=== PATIENT | male | born 1975 | race Caucasian/White ===

== ENCOUNTER 2020-04-08 16:38 | Inpatient (IN) | payer OTHER, SELFPAY ==
[2020-04-08] VITALS (8 sets, daily range): BP systolic 119–135; BP diastolic 70–89; PULSE 70–83; RESP 14–16; TEMP 36.3–36.8; O2SAT 95–98; BMI 27.2
--- NOTE | 2020-04-08 16:52 | CT_ITS ---
STUDY: CT ABDOMEN AND PELVIS WITHOUT CONTRAST REASON FOR EXAM: Male, 44 years old. RIGHT FLANK PAIN. JUST HAD LITHOTRIPSY AND URETERAL STENT REMOVED 3 DAYS AGO RADIATION DOSAGE (If Supplied By Facility): CTDIvol = ( 11.21 ) mGy, DLP = ( 558.05 ) mGycm TECHNIQUE: Transaxial images were obtained from the dome of the diaphragm to the symphysis pubis without oral contrast, and without intravenous contrast. Sagittal and coronal images were reconstructed. Individualized dose optimization techniques were used for this CT. COMPARISON: None. FINDINGS: The visualized lung bases are unremarkable. The visualized portions of the heart are within normal limits. Normal liver. Normal gallbladder and extrahepatic biliary system. Normal spleen. Normal pancreas. Normal bilateral adrenal glands. 2 tiny nonobstructing calculi in the right kidney. There is moderate right hydroureteronephrosis secondary to large calculus in the mid pelvic ureter measuring approximately 6 to 7 mm in size. Left kidney is atrophic and demonstrates multilobulated appearance possibly related to chronic scarring and demonstrates 2 nonobstructing calculi with mild pelvocaliectasis but no obstructing stone. Normal visualized stomach. Normal small intestine. Normal colon. The appendix is visualized and appears normal. Normal abdominal aorta. Normal inferior vena cava. Normal retroperitoneum. Incompletely distended thick-walled bladder likely of no significance There is trace of fluid within the pouch of ELVA. Mild prominence of the prostate and seminal vesicles uncertain significance possibly due to prostatitis however clinical correlation is recommended Small fat-containing left inguinal hernia Lumbar spine demonstrates degenerative change CT/Abdomen/Pelvis without Cont IMPRESSION: Nonobstructing right renal calculi and moderate hydroureteronephrosis secondary to large calculus in the mid pelvic ureter measuring approximately 6 to 7 mm in size Atrophic lobulated left kidney with tiny nonobstructing calculi Electronically Signed: Magdi Fajardo MD at 17:49 EST , Service support ,
--- NOTE | 2020-04-08 16:52 | ED.DCSUM_ITS ---
History of Present Illness Chief Complaint: Flank Pain Informant: Patient Narrative: 44-year-old male presents to the emergency room with right flank pain. Patient states that 2 weeks ago he was diagnosed with a kidney stone and ended up having surgery at [facility] in [place]. He followed up on Monday and had his ureteral stent removed. He states he is on his way home from that appointment and the same pain that he had experienced with his kidney stone returned. He states it has come and gone today was particularly bad around noon. States that he was advised to come back to the hospital and his neighbor had come here before and suggested that he come to [facility]. He notes nausea and vomiting. He has had prior appendectomy. He denies any dysuria. Past Medical History - Allergies and Home Meds Allergies/Adverse Reactions: Allergies No Known Allergies Allergy (Verified 04/08/20 16:43) Primary Care Physician: Skyler Gonzalez MD [Primary Care Provider] - Past Medical History: - - Ureterolithiasis Surgical History: appendectomy, - - Ureteral stent placement Lives: With Family Drugs: None Review of Systems General: Denies: Chills, Fever, Sweats Eyes: Denies: Visual changes - bilaterally, Diplopia ENT: Denies: Rhinorrhea, Sore throat Cardiovascular: Denies: Chest pain, Palpitations Respiratory: Denies: Dyspnea, Cough, Dyspnea on exertion Gastrointestinal: Reports: Abdominal pain, Nausea, Vomiting. Denies: Diarrhea, Melena, Hematochezia Genitourinary: Reports: - - Right flank pain. Denies: Dysuria, Hematuria, Frequency Musculoskeletal: Denies: Back pain, Extremity Pain Skin: Denies: Rash, Wounds Neurological: Denies: Headache, Weakness, Numbness Physical Exam Vital Signs/Narrative: Vital Signs Temp Pulse Resp BP Pulse Ox 04/08/20 16:39 98.3 F 83 16 126/79 H 96 04/08/20 16:38 98.3 F 70 16 126/79 H 96 Inital Vital Signs reviewed: Yes General: Well nourished, Well developed, No Acute Distress Head: Normocephalic, Atraumatic Eyes: Perrl, EOMI ENT: Moist mucous membranes, No rhinorrhea Neck: Supple, Nontender Cardiovascular: Regular rate, Regular rhythm, No murmurs Respiratory: No distress, CTA bilaterally, Chest nontender Abdomen: Soft, Nontender, Nondistended, Normal bowel sounds Back: Nontender, Normal Inspection Extremities: Nontender, No edema Skin: Normal color, No rash Neurological: Alert, Oriented x3, Cranial nerves II-XII grossly intact, Normal Strength, Normal Sensation Psychological: Normal affect, Normal Mood Diagnostic/Tx/Re-eval Laboratory Last Values WBC 11.7 K/mm3 (4.4-11.0) H 04/08/20 17:07 RBC 5.09 M/mm3 (4.6-6.2) 04/08/20 17:07 Hgb 16.1 g/dL (13.0-16.5) 04/08/20 17:07 Hct 45.4 % (40-54) 04/08/20 17:07 MCV 89.2 fL (80-94) 04/08/20 17:07 MCH 31.6 pg (27.0-32.0) 04/08/20 17:07 MCHC 35.5 g/dL (32-36) 04/08/20 17:07 RDW Std Deviation 38.4 fl (35.1-43.9) 04/08/20 17:07 RDW Coeff of [place] 11.7 % (11.6-14.6) 04/08/20 17:07 Plt Count 193 K/mm3 (150-450) 04/08/20 17:07 MPV 10.2 fl (6.2-12.0) 04/08/20 17:07 Immature Gran % (Auto) 0.400 % (0.0-0.9) 04/08/20 17:07 Neut % (Auto) 83.3 % (47-70) H 04/08/20 17:07 Lymph % (Auto) 7.4 % (19-41) L 04/08/20 17:07 [place] % (Auto) 8.3 % (0-10) 04/08/20 17:07 Eos % (Auto) 0.3 % (0-5) 04/08/20 17:07 Baso % (Auto) 0.3 % (0-1) 04/08/20 17:07 Absolute Neuts (auto) 9.8 X10^3/uL (2.0-7.7) H 04/08/20 17:07 Absolute Lymphs (auto) 0.87 X10^3/uL (0.83-4.51) 04/08/20 17:07 Nucleated RBC % 0 % (0-5) 04/08/20 17:07 Sodium 135 mmol/L (136-145) L 04/08/20 17:07 Potassium 3.8 mmol/L (3.5-5.1) 04/08/20 17:07 Chloride 98 mmol/L (98-107) 04/08/20 17:07 Carbon Dioxide 29.0 mmol/L (21.0-32.0) 04/08/20 17:07 Anion Gap 8 (5-15) 04/08/20 17:07 BUN 34 mg/dL (7-18) H 04/08/20 17:07 Creatinine 6.28 mg/dL (0.70-1.30) H 04/08/20 17:07 Estim Creat Clear Calc 15.32 ml/min 04/08/20 17:07 Est GFR (MDRD) Af Amer 13 mL/min (>60) L 04/08/20 17:07 Est GFR (MDRD) Non-Af 10 mL/min (>60) L 04/08/20 17:07 BUN/Creatinine Ratio 5.4 RATIO (10-20) L 04/08/20 17:07 Glucose 100 mg/dL (74-106) 04/08/20 17:07 Calcium 9.7 mg/dL (8.5-10.1) 04/08/20 17:07 Urine Color Yellow (Yellow) 04/08/20 17:00 Urine Clarity Clear (Clear) 04/08/20 17:00 Urine pH 6.5 (5.0 - 8.0) 04/08/20 17:00 Ur Specific [place] 1.010 (1.002-1.030) 04/08/20 17:00 Urine Protein Negative mg/dl (Negative) 04/08/20 17:00 Urine Glucose (UA) Normal mg/dl (Normal) 04/08/20 17:00 Urine Ketones Negative mg/dl (Negative) 04/08/20 17:00 Urine Occult Blood Negative /ul (Negative) 04/08/20 17:00 Urine Nitrite Negative (Negative) 04/08/20 17:00 Urine Bilirubin Negative mg/dL (Negative) 04/08/20 17:00 Urine Urobilinogen Normal mg/dl (Normal) 04/08/20 17:00 Ur Leukocyte Esterase 100 /ul (Negative) H 04/08/20 17:00 Urine RBC 0 SEEN /hpf (0-5) 04/08/20 17:00 Urine WBC 0-5 SEEN /hpf (0-5) 04/08/20 17:00 Ur Squamous Epith Cells 0 SEEN /hpf (0-5) 04/08/20 17:00 Urine Bacteria 0 SEEN /hpf (None Seen) 04/08/20 17:00 Urine Mucus 0 SEEN /hpf (<or=2+) 04/08/20 17:00 Clinical Impression(s) from Imaging Studies Abdomen/Pelvis CT 04/08/20 16:52 IMPRESSION: Nonobstructing right renal calculi and moderate hydroureteronephrosis secondary to large calculus in the mid pelvic ureter measuring approximately 6 to 7 mm in size Atrophic lobulated left kidney with tiny nonobstructing calculi Electronically Signed: Magdi Fajardo MD at 17:49 EST , Service support , - Medical Decision Making Patient with a large distal ureteral stone and severe hydronephrosis on stone protocol CT. Creatinine significantly elevated greater than 6. Patient wishes to stay at [facility] for his care. I spoke with our urologist money market clerk Dr. Cartwright. He is come to the emergency department to see the patient and will admit and take him to surgery tonight. ED Disposition - Plan for ED Patient: Diagnosis: Right ureteral calculus, Acute renal failure Referrals: Skyler Gonzalez MD [Primary Care Provider] -
[2020-04-08] MEDS: Ondansetron 4 MG/2 ML Vial IV (17:10)
[2020-04-08] MEDS: Ketorolac 15 MG/ML Vial IV (17:10)
[2020-04-08 17:11] LABS: Bacteria 0 SEEN /hpf (None Seen); Mucous, Urine 0 SEEN /hpf (<or=2+); Red Blood Cells-Urine 0 SEEN /hpf (0-5); Squamous Epithelial Cells - UA 0 SEEN /hpf (0-5)
[2020-04-08 17:19] LABS: Absolute Lymphocyte Count 0.87 X10^3/uL (0.83-4.51); Absolute Neutrophil Count 9.8 X10^3/uL (2.0-7.7); Basophil# 0.03 X10^3/uL; Basophil% 0.3 % (0-1); Eosinophil# 0.03 X10^3/uL; Eosinophils% 0.3 % (0-5); Hematocrit 45.4 % (40-54); Hemoglobin 16.1 g/dL (13.0-16.5); Lymphocyte # 0.87 X10^3/ul (4.0); Lymphocyte % 7.4 % (19-41); Mean Corp Hgb Conc 35.5 g/dL (32-36); Mean Corpuscular Hgb 31.6 pg (27.0-32.0); Mean Corpuscular Volume 89.2 fL (80-94); Mean Platelet Vol. 10.2 fl (6.2-12.0); Monocyte# 0.97 X10^3/uL; Monocyte% 8.3 % (0-10); NRBC Flagged by Analyzer 0 % (0-5); Neutrophil # 9.79 X10^3/uL (2.7-7.7); Neutrophil % 83.3 % (47-70); Platelet Count 193 K/mm3 (150-450); RBC Distribution Width CV 11.7 % (11.6-14.6); RBC Distribution Width SD 38.4 fl (35.1-43.9); Red Blood Count 5.09 M/mm3 (4.6-6.2); White Blood Count 11.7 K/mm3 (4.4-11.0)
[2020-04-08 17:23] LABS: Color, Urine Yellow (Yellow); Glucose, Dipstick Normal (Normal); Ketone-Dipstick Negative (Negative); Leukocyte Esterase-Dipstick 100 /ul (Negative); Nitrite-Dipstick Negative (Negative); Occult Blood-Urine Negative /ul (Negative); Protein-Dipstick Negative (Negative); Urine Bilirubin Dipstick Negative (Negative); Urine Clarity Clear (Clear); Urine Urobilinogen Normal (Normal); Urine pH 6.5 (5.0 - 8.0)
[2020-04-08 17:27] LABS: Anion Gap 8 (5-15); BUN 34 mg/dL (7-18); BUN/Creat Ratio 5.4 RATIO (10-20); Calcium,Total 9.7 mg/dL (8.5-10.1); Chloride 98 mmol/L (98-107); Creatinine, Serum 6.28 mg/dL (0.70-1.30); EST Glomerular Filtration Rate 10 mL/min (>60); Est Glom Filt Rate - Afr Amer 13 mL/min (>60); Estimated Creatinine Clearance 15.32 ml/min; Glucose 100 mg/dL (74-106); Potassium 3.8 mmol/L (3.5-5.1); Sodium Level 135 mmol/L (136-145)
[2020-04-08 17:31] LABS: White Blood Cells 0-5 SEEN /hpf (0-5)
--- NOTE | 2020-04-08 19:10 | PCM.HP.BLA ---
Problem List (1) Acute renal failure Status: Acute Qualifiers: Acute renal failure type: unspecified Qualified Code(s): N17.9 - Acute kidney failure, unspecified (2) Right ureteral calculus Status: Acute History and Physical Date of Admission: 04/08/20 Chief complaint is right flank pain. History of present illness, 44-year-old male has a solitary right kidney he underwent procedure done in [place] for an obstructing stone he had a stent removed just today by another urologist and he presented to the emergency room with severe pain and he has an obstructing stone in the distal right ureter and he has a very high creatinine. I do not know his baseline creatinine. He essentially has a solitary right kidney since his left kidney was operated on at this point is a very small remnant with poor function. Otherwise is a very healthy male who does not take any chronic medical problems. Past medical history, solitary right kidney Past surgical history, surgery in his left kidney some sort of exploratory surgery when he was little he does remember details, had as appendix removed, and he also had recent kidney stone surgery on the right side down in [place]. Allergies, no known drug allergies. Medications no chronic medications but currently taking Flomax for his kidney stone. Past medical problems no family medical problems that are relevant. Review of systems is positive for right flank pain and elevated creatinine and lab work. CAT scan reviewed and obstructing obstructing stone in the distal right ureter with right hydronephrosis Labs reviewed he has acute kidney insufficiency probably on some chronic kidney insufficiency as well as because a solitary right kidney On physical exam he is alert oriented x3 pleasant appearing 44-year-old male in no acute distress currently Abdomen soft and benign, Lungs are clear heart regular Genitourinary exam deferred extremities are normal Assessment and plan this is a 44-year-old male with solitary right kidney presents with obstruction in the distal right ureter severe hydronephrosis worsening kidney function because of the obstruction but baseline functions not clear. He has not had anything to eat or drink and he is also had some nausea vomiting today is due to the obstruction. I offered the patient intervention with ureteroscopy and laser surgery and patient tonight for a right ureteroscopy laser of the stone fragment in the distal ureter and also stent placement on the right side I expect his creatinine to resolve once we decompress his kidney but he understands is possible that he may have chronic renal insufficiency or injury from this. He want to spend the night and will check blood count in the morning and BMP in the morning to make sure his creatinine resolves. If he is clinically stable with resolving creatinine possible to let him go home tomorrow but I would like to see what his creatinine is after decompression. He understands the risk of the procedure is bleeding infection or rare risk of injury or damage to the ureter bladder understands also possible it may displace the stent if I am not able to reach his stone at this point just to relieve the obstruction. He is n.p.o. he signed the consent form and the team's been called.
--- NOTE | 2020-04-08 20:56 | DCINST_ITS ---
Discharge Diet: Light diet - advance as tolerated Discharge Activity: Return to Normal Activity Call your doctor if your incision/area has: Sudden Increased Bleeding Suture Line Care: Avoid Pulling/Pushing, Avoid Pinching/Bending Allergies/Adverse Reactions: Allergies No Known Allergies Allergy (Verified 04/08/20 16:43) Medications to take at Discharge Tamsulosin HCl [Flomax] 0.4 mg PO DAILY 04/08/20 Primary Care Physician: Skyler Gonzalez MD [Primary Care Provider] - Test Results: Test results from this visit will be discussed in further detail at your follow- up appointment, if applicable. Please Follow Up With: Jesus Cartwright MD - [phone] When: please call to make an appointment.
--- NOTE | 2020-04-08 21:02 | OP.PCM_ITS ---
Problem List (1) Acute renal failure Status: Acute Qualifiers: Acute renal failure type: unspecified Qualified Code(s): N17.9 - Acute kidney failure, unspecified (2) Right ureteral calculus Status: Acute Report of Operation Date of Procedure: 04/08/20 Pre-Operative Diagnosis: Obstructing stones status post stent removal outside hospital Post-Operative Diagnosis: Same Surgery/Procedure Performed:: Cystoscopy right ureteroscopy laser lithotripsy of stones and right stent placement. Description of Surgical Findings:: This is a patient who presents to the hospital for treatment for an obstructing right distal ureter calculi, he had a stent removed in [place] on Monday. He presented to the emergency room with severe flank pain and desired to have intervention instead of transferred back.. I discussed with the patient how the surgery would be performed and we reviewed the risks and benefits of the surgery. The risk and benefits include the risk of failure to remove the stone completely and that the patient may need multiple procedures. We discussed the risk of an infection, the risk of bleeding. We discussed the very rare risk of serious complicated injury to the ureter. The patient understands that if the stone is not able to be removed safely that we may abort the procedure and place a stent. After full discussion and all questions address with the patient the consent form was signed the side was marked appropriately and the patient was taken back to the operating room for the procedure. The patient was taken back to the operating room. After induction of anesthesia by the anesthesiology team the patient was placed in dorsolithotomy position. The genitals were prepped and draped in usual sterile fashion. I went into the bladder with a 21 [place] rigid cystourethroscope through the urethra. Upon entering the bladder I inspected the trigone the left and right ureteral orifice and the bladder itself. I then cannulated the right ureteral orifice and advanced a 0.038 Glidewire up into the kidney. Then over the Glidewire I advanced a 5 Fr Ureteral catheter and performed a retrograde pyelogram with about 10cc of contrast, to delineate the anatomy and identify the stone location. Backloaded off the 0.038 glidewire then the safety wire was left in place. I then placed a second 0.038 Guidewire as a working wire and over the working 0.038 guidewire I went in with the amina rigide 7.5fr ureteroscope. I was able to go inside with the 7.5Fr amina rigid utereroscope and I pulled out the working guidewire and then through the 7.5 fr simirigid ureteroscope I engage the stones and multiple fragments in the distal ureter with laser lithotripsy using a 270miron laser fiber with energy setting of 6 Hertz and 0.6 J until the stone was lasered into tiny little pieces that should pass on their own. A retrograde pyelogram was performed with 10cc of contrast and no extravasation of contrast or perforation was identified in the ureter there was some mild irritation of the ureter where the stone was located. I then backed out of the ureter left the wire in place and then over the 0.038 guidewire I placed a double coiled pigtail ureteral stent. The ureteral stent was advanced over the 0.038 guidewire under direct fluoroscopic guidance and direct cystoscopic visual guidance, once the stent was in good position I pulled the wire and the stent coiled in the kidney and bladder in good position. I then drained the patient's bladder and the cystoscope was removed and the patient was taken back to the recovery room in good position. The patient was given discharge instructions to call the office for instructions on when to come to the office to have the stent removed. Type of Anesthesia:: General Drains: stent right with string - Admit VTE Documentation VTE Present on Admission: No VTE Mechan Device Prophylaxis: SCD's
[2020-04-08] MEDS: 0.9% Normal Saline 1,000 ML 150 ML IV ×2 (21:15→23:39)
[2020-04-08] MEDS: Famotidine 20 MG Tablet PO (22:23)
[2020-04-09 01:34] VITALS: BP 122/82; PULSE 78; RESP 16; TEMP 36.8; O2SAT 95
[2020-04-09 05:30] VITALS: BP 119/76; PULSE 75; RESP 18; TEMP 36.6; O2SAT 93
[2020-04-09] MEDS: Cefazolin 1 GM/50 ML BAG IV (05:32)
[2020-04-09] MEDS: 0.9% Normal Saline 1,000 ML 150 ML IV (06:25)
[2020-04-09 07:03] LABS: Absolute Lymphocyte Count 0.99 X10^3/uL (0.83-4.51); Absolute Neutrophil Count 5.4 X10^3/uL (2.0-7.7); Basophil# 0.03 X10^3/uL; Basophil% 0.4 % (0-1); Eosinophil# 0.08 X10^3/uL; Eosinophils% 1.1 % (0-5); Hematocrit 41.5 % (40-54); Hemoglobin 14.2 g/dL (13.0-16.5); Lymphocyte # 0.99 X10^3/ul (4.0); Mean Corp Hgb Conc 34.2 g/dL (32-36); Mean Corpuscular Hgb 30.5 pg (27.0-32.0); Mean Corpuscular Volume 89.2 fL (80-94); Mean Platelet Vol. 10.2 fl (6.2-12.0); Monocyte# 0.55 X10^3/uL; Monocyte% 7.8 % (0-10); NRBC Flagged by Analyzer 0 % (0-5); Neutrophil % 76.3 % (47-70); Platelet Count 170 K/mm3 (150-450); RBC Distribution Width CV 11.9 % (11.6-14.6); RBC Distribution Width SD 38.2 fl (35.1-43.9); Red Blood Count 4.65 M/mm3 (4.6-6.2); White Blood Count 7.1 K/mm3 (4.4-11.0)
[2020-04-09 07:30] LABS: Anion Gap 6 (5-15); BUN 31 mg/dL (7-18); BUN/Creat Ratio 8.1 RATIO (10-20); Calcium,Total 8.3 mg/dL (8.5-10.1); Chloride 105 mmol/L (98-107); Creatinine, Serum 3.84 mg/dL (0.70-1.30); EST Glomerular Filtration Rate 18 mL/min (>60); Est Glom Filt Rate - Afr Amer 22 mL/min (>60); Estimated Creatinine Clearance 25.06 ml/min; Glucose 136 mg/dL (74-106); Potassium 3.2 mmol/L (3.5-5.1); Sodium Level 138 mmol/L (136-145)
--- NOTE | 2020-04-09 07:37 | DS.PCM_ITS ---
Discharge Date and Diagnosis - Problem List Patient Problems: Active and Suspected Problems Right ureteral calculus (Acute) Acute renal failure (Acute) Date of Admission: 04/08/20 Date of Discharge: 04/09/20 - Primary Discharge Diagnosis Acute Problems: Active Problems Right ureteral calculus (Acute) Acute renal failure (Acute) Hospital Course and Treatment Operations: - - Ureteroscopy and laser stones in the right ureter and right stent placement Procedures: None Summary of Care Provided: The patient is a 44 year old male who had a stone in the right solitary kidney with very large stone was lasered up and Jhony stent was removed on Monday he then presented to the emergency room here severe renal colic CAT scan was a done demonstrate obstructing stone in the distal right ureter so he was taken to surgery we lasered out the obstructing stone place a new stent. On admission his creatinine was 6 and now his creatinine is down to 3.2 recovering rapidly. He will be discharged home some antibiotics pain medicine and he can follow-up in a week next week to remove the stent in my office. Patient Problems: Active and Suspected Problems Right ureteral calculus (Acute) Acute renal failure (Acute) - Physical Exam Vitals/I&O's: Vital Signs Temp Pulse Resp BP Pulse Ox 97.9 F 75 18 119/76 93 04/09/20 05:30 04/09/20 05:30 04/09/20 05:30 04/09/20 05:30 04/09/20 05:30 Oxygen Delivery Method Room Air Weight: 83.6 kg Body Mass Index (BMI) 27.2 Intake and Output for Last 24 Hours 04/07/20 04/08/20 04/09/20 23:59 23:59 23:59 Intake Total 360 / 560 1690.0 / 1690.0 Output Total 1425 / 1425 Balance 360 / 560 265.0 / 265.0 General: Alert, Oriented x3, Cooperative HEENT: Atraumatic, PERRLA, EOMI, Normocephalic Neck: Supple, No JVD, Negative Carotid Bruits Lungs: Clear to auscultation, Normal air movement Cardiovascular: Regular rate, No murmurs Abdomen: Bowel Sounds Present, Soft, Non Tender Extremities: No edema, Capillary Refill Less than 3 Seconds Skin: No rashes, No breakdown Musculoskeletal: No Tenderness to Palpation of Joints or Extremities Neurological: Cranial nerves II-XII grossly intact Psych/Mental Status: Normal Affect, Appropriate Microbiology Past 72 Hours 04/08/20 19:35 Mucosa - Nose SARS-CoV-2 Antigen (Rapid) - Final Laboratory Results 04/08/20 17:00: Urine Color Yellow, Urine Clarity Clear, Urine pH 6.5, Ur Specific [place] 1.010, Urine Protein Negative, Urine Glucose (UA) Normal, Urine Ketones Negative, Urine Occult Blood Negative, Urine Nitrite Negative, Urine Bilirubin Negative, Urine Urobilinogen Normal, Ur Leukocyte Esterase 100 H, Urine RBC 0 SEEN, Urine WBC 0-5 SEEN, Ur Squamous Epith Cells 0 SEEN, Urine Bacteria 0 SEEN, Urine Mucus 0 SEEN 04/08/20 17:07: WBC 11.7 H, RBC 5.09, Hgb 16.1, Hct 45.4, MCV 89.2, MCH 31.6, MCHC 35.5, RDW Std Deviation 38.4, RDW Coeff of [place] 11.7, Plt Count 193, MPV 10.2, Immature Gran % (Auto) 0.400, Neut % (Auto) 83.3 H, Lymph % (Auto) 7.4 L, [place] % (Auto) 8.3, Eos % (Auto) 0.3, Baso % (Auto) 0.3, Absolute Neuts (auto) 9.8 H, Absolute Lymphs (auto) 0.87, Nucleated RBC % 0 04/08/20 17:07: Sodium 135 L, Potassium 3.8, Chloride 98, Carbon Dioxide 29.0, Anion Gap 8, BUN 34 H, Creatinine 6.28 H, Estim Creat Clear Calc 15.32, Est GFR (MDRD) Af Amer 13 L, Est GFR (MDRD) Non-Af 10 L, BUN/Creatinine Ratio 5.4 L, Glucose 100, Calcium 9.7 04/09/20 06:38: WBC 7.1, RBC 4.65, Hgb 14.2, Hct 41.5, MCV 89.2, MCH 30.5, MCHC 34.2, RDW Std Deviation 38.2, RDW Coeff of [place] 11.9, Plt Count 170, MPV 10.2, Immature Gran % (Auto) 0.400, Neut % (Auto) 76.3 H, Lymph % (Auto) 14.0 L, [place] % (Auto) 7.8, Eos % (Auto) 1.1, Baso % (Auto) 0.4, Absolute Neuts (auto) 5.4, Absolute Lymphs (auto) 0.99, Nucleated RBC % 0 04/09/20 06:38: Sodium 138, Potassium 3.2 L, Chloride 105, Carbon Dioxide 27.0, Anion Gap 6, BUN 31 H, Creatinine 3.84 H, Estim Creat Clear Calc 25.06, Est GFR (MDRD) Af Amer 22 L, Est GFR (MDRD) Non-Af 18 L, BUN/Creatinine Ratio 8.1 L, Glucose 136 H, Calcium 8.3 L Current Medications Acetaminophen (Acetaminophen 325 Mg Tablet) 650 mg PO Q6H PRN PRN PRN Reason: Pain Score 1-10/Temp > 100.7 F Famotidine (Famotidine 20 Mg Tablet) 20 mg PO BID [facility] Last Admin: 04/08/20 22:23 Dose: 20 mg Documented by: Sodium Chloride () 1,000 mls @ 150 mls/hr IV .[id number] [facility] Last Admin: 04/09/20 06:25 Dose: 150 mls/hr Documented by: Cefazolin Sodium () 1 gm in 50 mls @ 100 mls/hr IV Q8 [facility] Stop: 04/13/20 06:01 Last Infusion: 04/09/20 06:02 Dose: Infused Documented by: Oxycodone HCl (Oxycodone 5 Mg Tablet) 5 mg PO Q4H PRN PRN PRN Reason: Pain Score 4-10 Sodium Chloride (0.9% Saline Lock 10 Ml Syringe) 10 - 40 ml IV UD PRN PRN Reason: SALINE FLUSH Discharge Diet: Light diet - advance as tolerated Discharge Activity: Return to Normal Activity Call your doctor if your incision/area has: Sudden Increased Bleeding Suture Line Care: Avoid Pulling/Pushing, Avoid Pinching/Bending Home Medications: Medications to take at Discharge Acetaminophen [Tylenol Extra Strength] 500 mg PO Q4H PRN PRN #20 tab 04/08/20 Tamsulosin HCl [Flomax] 0.4 mg PO DAILY 04/08/20 Following Prescriptions Were Given to Patient: Acetaminophen [Tylenol Extra Strength] 500 mg PO Q4H PRN PRN #20 tab PRN Reason: Pain 1-10 Or Fever Transmission Status: Received by [facility] Primary Care Physician: Skyler Gonzalez MD [Primary Care Provider] - Please Follow Up With: Jesus Cartwright MD - [phone] When: please call to make an appointment. Medical Necessity - Tobacco Use Smoking Status: Never smoker Meaningful Use Info Meaningful Use Diagnoses (Choose all that apply): None applicable
[2020-04-09 08:25] VITALS: BP 127/77; PULSE 84; RESP 15; TEMP 36.6; O2SAT 93
[2020-04-09 09:00] VITALS: BP 121/86; PULSE 84; RESP 18; TEMP 36.6; O2SAT 96
--- NOTE | 2020-04-09 09:59 | CASEMGMT ---
RN CM attempted to complete RN CM assessment at this time. Patient has been discharged. Patient is established with PCP and to follow-up with urology. Patient lives with a . No needs identified at this time.
== END 2020-04-09 09:15 | disposition home or self-care (01) | DRG 670 ==
LOC: ED 17:41 → SDC 18:56 → ACINP 18:58 → MS3 04-09 06:30 → SDC 04-09 09:06
PROVIDERS: Admitting Provider Urology; Emergency Provider Emergency Medicine; PCP Family Medicine; Visit Provider Urology
PROC: 0TJ98ZZ Inspection of Ureter, Via Natural or Artificial Opening Endoscopic (ICD-10-PCS; CPT 52351; principal; 2020-04-08 20:00)
DX: N13.2 Hydronephrosis with renal and ureteral calculous obstruction (principal); N17.9 Acute kidney failure, unspecified; Z87.442 Personal history of urinary calculi
CPT/HCPCS: 36415; 74176; 80048; 81001; 85025; 87426; 99284; J7030; A4216; C1769; J2405

== ENCOUNTER → 2020-04-14 09:30 | Outpatient (CLI) | payer OTHER, SELFPAY ==
[2020-04-08 21:37] VITALS: BMI 27.2
[2020-04-14 10:19] LABS: Anion Gap 3 (5-15); BUN 19 mg/dL (7-18); BUN/Creat Ratio 17.9 RATIO (10-20); Calcium,Total 9.7 mg/dL (8.5-10.1); Chloride 106 mmol/L (98-107); Creatinine, Serum 1.06 mg/dL (0.70-1.30); EST Glomerular Filtration Rate 81 mL/min (>60); Est Glom Filt Rate - Afr Amer 98 mL/min (>60); Glucose 92 mg/dL (74-106); Sodium Level 139 mmol/L (136-145)
== END ==
PROVIDERS: PCP Family Medicine; Referring Provider Urology; Visit Provider Urology
DX: N20.0 Calculus of kidney (principal)
CPT/HCPCS: 36415; 80048

== ENCOUNTER 2021-06-21 07:51 | Outpatient (CLI) | payer SELFPAY, OTHER ==
--- NOTE | 2021-06-21 07:55 | RAD_ITS ---
STUDY: X-RAY - ABDOMEN/PELVIS REASON FOR EXAM: Male, 45 years old. CALCULUS OF KIDNEY TECHNIQUE: Single AP view of the abdomen / pelvis. COMPARISON: None. FINDINGS: Normal visualized lung bases. There is a moderate amount of colonic fecal material. The visualized liver, spleen and kidneys are grossly normal in size and morphology. Normal soft tissue structures. Disc space narrowing at the L4-L5 and L5-S1 levels. RAD/Abdomen Single View IMPRESSION: Moderate amount of fecal material is seen in the colon. Electronically Signed: Cain Berg MD at 12:55 EDT ,
== END 2021-06-21 23:59 | disposition home or self-care (01) ==
PROVIDERS: PCP Family Medicine; Referring Provider Urology; Visit Provider Urology
DX: N20.0 Calculus of kidney (principal)
CPT/HCPCS: 74018

== ENCOUNTER 2024-11-29 06:48 | Day surgery (SDC) | payer SELFPAY, OTHER ==
[2024-11-29] VITALS (7 sets, daily range): BP systolic 106–124; BP diastolic 78–83; PULSE 56–68; RESP 14–16; TEMP 36.1–36.4; O2SAT 92–99; BMI 27.4
--- OUTSIDE RECORDS SUMMARY | 2024-11-29 06:51 | XMS RPT_ITS | CCD ---
Author Organization [facility] Informat ion Partnership [facility] Care Team Providers Care Warranty Clerk Name Role Phone Brijesh Gonzalez Primary Care Provider CHON SHERIDAN Consulting Unavailable LEA SPICER Attending Unavailable LAINEY NAIR Admitting Unavailab le SYSTEM, PROVIDER NOT IN Referring Unavaila ble VACCARIELLO, BRIJESH Ramirez Primary Care Unavailable SYSTEM, PROVIDER NOT IN Admitting Unavaila ble SYSTEM, PROVIDER NOT IN Referring Unavaila ble VACCARIELLO, BRIJESH Ramirez Primary Care Unavailable MINOR MELTON Attending Unavailable VACCARIELLO, BRIJESH Ramirez Primary Care Unavailable VACCARIELLO, BRIJESH Ramirez Primary Care Unavailable MINOR MELTON Attending Unavailable LESLY MARTINEZ Attending Unavailable VACCLASHANDA, BRIJESH Consulting Unavailable LESLY MARTINEZ Admitting Unavailable LESLY MARTINEZ Primary Care Unavailable PROVIDER, UNKNOWN Consulting Unavailable PROVIDER, UNKNOWN Consulting Unavailable PROVIDER, UNKNOWN Consulting Unavailable Vacclashanda, Brijesh Primary Care Unavailable Jesus Cartwright Referring Unavailable Gabbie, Jesus Eaton Attending Unavailable Allergies Allergy Classification Reported Allergen(s) Allergy Type Date of Onset Reaction(s) Facility (4 sources) Penicillins; Translations: [PENICILLINS] Propensity to adverse reactions to drug (disorder) [facility] Repository (1 source) Penicillins Drug allergy (disorder) [facility] Repository Medications Current Medications Medication Drug Class(es) Dates Sig (Normalized) Sig (Original) acetaminophen 500 mg oral tablet (2 sources) Start: 04-08-2020 take 500 mg by mouth every four hours as needed Acetaminophen Active 500 MG PO EVERY 4 HOURS NEEDED April 08, 2020 10:00pm Start: 03-24-2020 End: 03-25-2020 take 1 tablet by mouth every six hours as needed acetaminophen (TYLENOL) tablet 650 mg acetaminophen 325 mg / oxyCODONE hydrochloride 5 mg oral tablet (1 source) Opioid Agonist Start: 04-07-2020 End: 04-14-2020 take 1 tablet by mouth every six hours as needed for pain, then take 7 tablets by mouth as needed for pain oxyCODONE-acetaminophen (PERCOCET) 5-325 mg per tablet Indications: Kidney stone Take 1 (one) tablet by mouth every 6 (six) hours as needed for pain (Days supply per fill: 7) . 28 tablet 0 04/07/2020 04/14/2020 Active multivitamin (THERAGRAN) per tablet (3 sources) take 1 tablet by mouth once daily multivitamin (THERAGRAN) per tablet Take 1 tablet by mouth daily . 0 Active ondansetron 8 mg disintegrating oral tablet (1 source) Serotonin-3 Receptor Antagonist Start: 04-07-2020 End: 04-14-2020 apply 1 tablet topically every eight hours as needed for nausea ondansetron (ZOFRAN-ODT) 8 MG disintegrating tablet Indications: Kidney stone Dissolve 1 (one) tablet (8 mg total) on top of tongue every 8 (eight) hours as needed for nausea . 20 tablet 0 04/07/2020 04/14/2020 Active phenazopyridine hydrochloride 100 mg oral tablet (1 source) Start: 03-25-2020 End: 04-01-2020 take 1 tablet by mouth three times daily as needed for pain phenazopyridine (PYRIDIUM) 100 MG tablet Take 1 (one) tablet (100 mg total) by mouth 3 (three) times a day as needed for pain . 20 tablet 0 03/25/2020 04/01/2020 Active sulfamethoxazole 800 mg / trimethoprim 160 mg oral tablet (1 source) Dihydrofolate Reductase Inhibitor Antibacterial, Sulfonamide Antimicrobial Start: 03-25-2020 End: 04-01-2020 take 1 tablet by mouth twice daily sulfamethoxazole-trimetho prim (BACTRIM DS,SEPTRA DS) 800-160 mg per tablet Take 1 (one) tablet by mouth 2 (two) times a day for 7 days . 14 tablet 0 03/25/2020 04/01/2020 Active tamsulosin hydrochloride 0.4 mg oral capsule (5 sources) alpha-Adrenergic Natalia Start: 03-25-2020 End: 05-07-2020 take 0.4 mg by mouth once daily Tamsulosin Active 0.4 MG PO DAILY April 08, 2020 5:52pm Completed/Discontinued Medications Medication Drug Class(es) Dates Sig (Normalized) Sig (Original) calcium chloride 0.0014 meq/ml / potassium chloride 0.004 meq/ml / sodium chloride 0.103 meq/ml / sodium lactate 0.028 meq/ml injectable solution (1 source) Start: 03-25-2020 End: 03-25-2020 lactated Ringers infusion ciprofloxacin 500 mg oral tablet (2 sources) Quinolone Antimicrobial Start: 04-06-2020 End: 04-06-2020 ciprofloxacin HCl (CIPRO) tablet 500 mg Start: 04-06-2020 End: 04-06-2020 ciprofloxacin HCl (CIPRO) ta blet 500 mg docusate sodium 50 mg / sennosides, penitentiary 8.6 mg oral tablet (1 source) Start: 03-24-2020 End: 03-25-2020 senna-docusate (SENNA-S) 8.6-50 mg per tablet 1 tablet lidocaine hydrochloride 0.02 mg/mg topical gel (2 sources) Antiarrhythmic, Amide Local Anesthetic Start: 04-06-2020 End: 04-06-2020 lidocaine HCL (UROJET) 2 % applicator 1 application Start: 04-06-2020 End: 04-06-2020 lidocaine HCL (UROJET) 2 % a pplicator 1 application naloxone (NARCAN) injection 0.1 mg (1 source) Start: 03-24-2020 End: 03-25-2020 naloxone (NARCAN) injection 0.1 mg ondansetron (ZOFRAN-ODT) disintegrating tablet 4 mg (1 source) Start: 03-24-2020 End: 03-25-2020 take 1 tablet by mouth every six hours as needed ondansetron (ZOFRAN-ODT) disintegrating tablet 4 mg oxyCODONE hydrochloride 20 mg/ml oral solution (1 source) Opioid Agonist Start: 03-24-2020 End: 03-25-2020 take 5-10 mg under the tongue every four hours as needed oxyCODONE (ROXICODONE) 10 mg/0.5 mL concentrated solution 5-10 mg 1000 ml sodium chloride 9 mg/ml injection (1 source) Start: 03-24-2020 End: 03-25-2020 sodium chloride 0.9% (NS) Problems Problem Classification Problem Date Documented Da te Episodic/Chronic Acute and unspecified renal failure (1 source) Acute renal failure syndrome; Translations: [Acute kidney failure, unspecified] Episodic Calculus of urinary tract (9 sources) Renal colic; Translations: [Kidney stone] Onset: 03-24-2020 03-24-2020 Episodic Residual codes; unclassified (1 source) Acute pain; Translations: [Acute pain] Episodic Results Test Name Value Interpretation Reference Range Facility CT ABDOMEN/PELVIS WO 11-19 CT ABDOMEN/PELVIS [place] [address] Patient: BRIJESH GONZALEZ Phone#: : [phone] Age: 49 Gender: M Pt. Type: Out Account: [id number] Location: [facility] Ordering: LESLY MARTINEZ Exam Date: 11/19/2024/7:44 Family Phys: Charge Code: 458950 Physician: Bingham Order #: [id number] Dose#: 9.00 mGy PROCEDURE: CT ABDOMEN/PELVIS WITHOUT CONTRAST COMPARISON: None. INDICATIONS: abdom pain susp for kidney stone TECHNIQUE: CT images were created without intravenous contrast. All CT scans at this facility use dose modulation, iterative reconstruction, and/or weight based dosing when appropriate to reduce radiation dose to as low as reasonably achievable. IV CONTRAST: No IV contrast used,ml TOTAL DOSE: 9.00 CTDIvol(mGy) FINDINGS: LIVER: Normal. No enlargement, atrophy, abnormal density, or significant focal lesion. BILIARY: Normal. No visible dilatation or calcification. PANCREAS: Normal. No lesion, fluid collection, ductal dilatation, or atrophy. SPLEEN: Normal. No enlargement or focal lesion. KIDNEYS: Nonobstructing 6 millimeter calculus is present at the right renal pelvis. There is mild peripelvic and periureteral stranding suggestive of ureteritis. There is no evidence of obstructing calculus within the ureter. There is left renal atrophy and scarring. Calcifications are present. There is no evidence of hydronephrosis. ADRENALS: Normal. No mass or enlargement. AORTA/VASCULAR: Normal. No aneurysm. RETROPERITONEUM: Normal. No mass or adenopathy. BOWEL/MESENTERY: Normal. No visible mass, obstruction, or bowel wall thickening. ABDOMINAL WALL: Normal. No mass or hernia. URINARY BLADDER: Normal. No visible focal wall thickening, lesion, or calculus. PELVIC NODES: Normal. No adenopathy. PELVIC ORGANS: Normal. No visible mass. Pelvic organs appropriate for patient age. BONES: Degenerative changes of the spine are present at the L3-4, L4-5 and L5-S1 levels. LUNG BASES: Normal. No visible pulmonary or pleural disease. OTHER: Negative. Continued Report - Page 2 of 2 Patient: BRIJESH GONZALEZ Phone#: : [phone] Age: 49 Gender: M Pt. Type: Out Account: [id number] Location: [facility] Ordering: LESLY JACKSONJUAN Exam Date: 11/19/2024/7:44 Family Phys: Charge Code: 168584 Physician: Bingham Order #: [id number] Dose#: 9.00 mGy CONCLUSION: 1. Nonobstructing calcification at the right renal pelvis. Mild periureteral fat stranding suspicious for ureteritis. 2. Left renal atrophy/scarring. Nonobstructing calculi are present. Dictated by: Renetta Holman MD on 11/19/2024 at 11:10 Approved by: Renetta Holman MD on 11/19/2024 at 11:16 Normal [facility] CULTURE, URINE, ROUTINEon CULTURE, URINE, ROUTINE SEE NOTE Normal [facility] Comment on above: Result Comment: CULTURE, URINE, ROUTINE Micro Number: [id number] Test Status: Final Specimen Source: Urine Specimen Quality: Adequate Result: No Growth Performed By: #### 3 [id number] #### [facility] [address], [address] [place] [id number] Radial Arm Saw Operator: Humberto Davis MD CBCon 03-25-2020 Erythrocyte distribution width (RBC) [Entitic vol] 12.2 % 11.6 - 14.8 % [facility] Hematocrit (Bld) [Volume fraction] 50.9 % 41 - 53 % [facility] Hemoglobin (Bld) [Mass/Vol] 17.1 g/dL 13.5 - 17.5 g/dL [facility] MCH (RBC) [Entitic mass] 31.1 pg 26 - 34 pg [facility] MCHC (RBC) [Mass/Vol] 33.6 g/dL 31 - 37 g/dL [facility] MCV (RBC) [Entitic vol] 92.5 fL 80 - 100 fL [facility] Nucleated RBC (Bld) [#/Vol] 0.00 10*3/uL [facility] Nucleated RBC/100 WBC (Bld) [Ratio] 0.0 % [facility] Platelet mean volume (Bld) [Entitic vol] 10.3 fL 9.4 - 12.4 fL [facility] Platelets (Bld) [#/Vol] 200 10*3/uL [facility] RBC (Bld) [#/Vol] 5.50 10*6/uL [facility] WBC (Bld) [#/Vol] 6.48 10*3/uL [facility] Renal Function Panelon 03-25 Albumin [Mass/Vol] 4.0 g/dL 3.2 - 5.2 g/dL [facility] Anion gap [Moles/Vol] 13 mmol/L 10 - 20 mmol/L [facility] Calcium [Mass/Vol] 9.2 mg/dL 8.4 - 10. 2 mg/dL [facility] Chloride [Moles/Vol] 105 mmol/L 98 - 10 8 mmol/L [facility] Creatinine [Mass/Vol] 0.95 mg/dL 0.50 - 1.30 [facility] GFR/1.73 sq M predicted among non-blacks MDRD (S/P/Bld) [Vol rate/Area] The eGFR should be used for monitoring renal function only and not for medication dosing. [facility] GFR/1.73 sq M.predicted CKD-EPI (S/P/Bld) [Vol rate/Area] 98 >=60 mL/min/1.73 m2 [facility] Glucose [Mass/Vol] 90 mg/dL 65 - 99 mg/dL [facility] HCO3 [Moles/Vol] 23 mmol/L 21 - 32 mmol/L [facility] Interpretation and review of laboratory results Normal [facility] Phosphate [Mass/Vol] 2.8 mg/dL 2.7 - 4 .5 mg/dL [facility] Potassium [Moles/Vol] 4.0 mmol/L 3.5 - 5.1 mmol/L [facility] Sodium [Moles/Vol] 137 mmol/L 135 - 145 mmol/L [facility] Urea nitrogen [Mass/Vol] 14 mg/dL 8 - 25 mg/dL [facility] Urea nitrogen/Creatinine [Mass ratio] 14.7 mg/mg [facility] XR OR ABDOMEN 1 VIEWon 03-25 XR OR ABDOMEN 1 VIEW EXAMINATION: ONE SUPINE XRAY VIEW(S) OF THE ABDOMEN 03/25/2020 12:44 pm TECHNIQUE: Fluoroscopy was provided by the radiology department for procedure. Radiologist was not present during examination. FLUOROSCOPY DOSE AND TYPE OR TIME AND EXPOSURES: Ka,r = 3.25 mGy 20.8 seconds COMPARISON: None HISTORY: ORDERING SYSTEM PROVIDED HISTORY: or; TECHNOLOGIST PROVIDED HISTORY: Illness/Other Acuity: Unknown Reason for Exam: or Type of Encounter: Unknown Additional signs and symptoms: or Fluoro dose in mGy?:3.25 Right renal pelvic stone. FINDINGS: Successful retrograde pyelogram, with a filling defect noted in the right renal pelvis. A ureteral stent was deployed. IMPRESSION: Intraoperative fluoroscopic spot images as above. Please refer to the operative note for further details. Workstation ID: [id number] Dictated by: JUAN PERSON on MonMar 25, 2020 1:35:39 PM EST Transcribed by: JUAN PERSON on MonMar 25, 2020 1:35:39 PM EST Finalized by: JUAN PERSON on MonMar 25, 2020 1:35:39 PM EST Normal [facility] Comment on above: Order Comment: Injur y/Trauma or Illness?:Illness/Other How long have you had these symptoms (acute/chronic)?:Unknown Reason for exam?:or Type of Exam?:Unknown Additional signs and symptoms?:or Fluoro time in minutes:.35 Fluoro dose in mGy?:3.25 XR OR Abdomen APon EXAMINATION: ONE SUPINE XRAY VIEW(S) OF THE ABDOMEN 03/25/2020 12:44 pm TECHNIQUE: Fluoroscopy was provided by the radiology department for procedure. Radiologist was not present during examination. FLUOROSCOPY DOSE AND TYPE OR TIME AND EXPOSURES: Ka,r = 3.25 mGy 20.8 seconds COMPARISON: None HISTORY: ORDERING SYSTEM PROVIDED HISTORY: or; TECHNOLOGIST PROVIDED HISTORY: Illness/Other Acuity: Unknown Reason for Exam: or Type of Encounter: Unknown Additional signs and symptoms: or Fluoro dose in mGy?:3.25 Right renal pelvic stone. FINDINGS: Successful retrograde pyelogram, with a filling defect noted in the right renal pelvis. A ureteral stent was deployed. [facility] Coy, Amadeo In Jose Speechq - 03/25/2020 1:38 PM EST EXAMINATION: ONE SUPINE XRAY VIEW(S) OF THE ABDOMEN 03/25/2020 12:44 pm TECHNIQUE: Fluoroscopy was provided by the radiology department for procedure. Radiologist was not present during examination. FLUOROSCOPY DOSE AND TYPE OR TIME AND EXPOSURES: Ka,r = 3.25 mGy 20.8 seconds COMPARISON: None HISTORY: ORDERING SYSTEM PROVIDED HISTORY: or; TECHNOLOGIST PROVIDED HISTORY: Illness/Other Acuity: Unknown Reason for Exam: or Type of Encounter: Unknown Additional signs and symptoms: or Fluoro dose in mGy?:3.25 Right renal pelvic stone. FINDINGS: Successful retrograde pyelogram, with a filling defect noted in the right renal pelvis. A ureteral stent was deployed. IMPRESSION: Intraoperative fluoroscopic spot images as above. Please refer to the operative note for further details. Workstation ID: [id number] [facility] XR OR FLUOROSCOPY TIMEon XR OR FLUOROSCOPY TIME This is an auto finalized result. Please refer to patient chart for further information. further information. further information. [facility] Comment on above: Order Comment: Injur y/Trauma or Illness?:Illness/Other How long have you had these symptoms (acute/chronic)?:Unknown Reason for exam?:or Type of Exam?:Unknown Additional signs and symptoms?:or Fluoro time in minutes:.35 Fluoro dose in mGy?:3.25 XR OR Fluoroscopy Timeon This is an auto finalized result. Please refer to patient chart for further information. [facility] CT COMPARISON IMPORTon 03-24 This order has been auto-finalized and does not contain a result. [facility] Vital Signs Date Time Vital Sign Value Performing Clinician Dilip mack 04-06-2020 12:18-0500 BMI (Body Mass Index) 26.91 kg/m2 Minor Melton [facility] 04-06-2020 12:18-0500 Body Temperature 98.49 [degF] Minor Melton [facility] 04-06-2020 12:18-0500 Body weight 80.29 kg Minor Melton [facility] 04-06-2020 12:18-0500 BP Diastolic 92 mm[Hg] Minor Melton [facility] 04-06-2020 12:18-0500 BP Systolic 136 mm[Hg] Minor Melton [facility] 04-06-2020 12:18-0500 Pulse (Heart Rate) 86 /min Minor Melton [facility] 03-25-2020 14:24-0500 Body Temperature 97.7 [degF] Generic [facility] 03-25-2020 14:24-0500 BP Diastolic 89 mm[Hg] Generic [facility] 03-25-2020 14:24-0500 BP Systolic 133 mm[Hg] Generic [facility] 03-25-2020 14:24-0500 Pulse (Heart Rate) 70 /min Generic [facility] 03-25-2020 14:24-0500 Pulse Oximetry 96 % [facility] 03-25-2020 14:24-0500 Respiratory Rate 17 /min [facility] 03-24-2020 11:32-0500 BMI (Body Mass Index) 27.45 kg/m2 [facility] 03-24-2020 11:32-0500 Body weight 81.9 kg [facility] 03-24-2020 11:32-0500 Height 172.7 cm [facility] Encounters Encounter Date Encounter Type Care Provider Facility Start: 11-29-2024 ambulatory Brijesh Alfaro ty:[facility] Start: 11-19-2024 End: 11-19-2024 ambulatory [facility] Start: 06-21-2021 End: 06-21-2021 Patient encounter procedure [facility], [facility] Start: 04-07-2020 End: 04-07-2020 Orders Only Minor Melton Work Phone: [facility] Comment on above: Kidney stone (Primar y Dx) Start: 04-06-2020 End: 04-06-2020 Patient encounter procedure MINOR MELTON [facility] Start: 04-06-2020 End: 04-06-2020 Follow-up encounter Minor Melton Work Phone: [facility] Comment on above: Kidney stone (Primar y Dx) Start: 03-24-2020 End: 03-28-2020 Patient encounter procedure PROVIDER NOT IN SYSTEM [facility] Start: 03-24-2020 End: 03-25-2020 Patient encounter procedure CHON SHERIDAN [facility] Start: 03-24-2020 End: 03-25-2020 Subsequent hospital visit by physician Cheko [facility] Work Phone: [facility] Comment on above: Renal colic on right side; Acute pain Procedures Date Procedure Procedure Detail Performing Clinician Start: 06-21-2021 Diagnostic radiograp hy of abdomen Start: 03-25-2020 Radiologic exam abdo men 1 view Minor Trevizo Melton Work Phone: Start: 03-25-2020 XR OR FLUOROSCOPY TIME Minor Trevizo Linh Work Phone: Start: 03-25-2020 Complete blood count (hemogram) panel - Blood by Automated count Lainey Nair Work Phone: Start: 03-25-2020 Renal function 2000 panel - Serum or Plasma Lainey Kittyyoly Nair Work Phone: Start: 03-24-2020 Computerized tomogra phy, limited studies External Transcribed Plan of Treatment Date Care Activity Detail Author Start: 11-19-2019 Influenza vaccination given Se quential Influenza Vaccine (#1) [facility] Start: 09-03-1995 Hepatitis C antibody , confirmatory test Hepatitis C Screening [facility] Start: 1992 HIV screening HIV Screening [facility] Start: 1989 Adolescent depressio n screening assessment Depression Screening (PHQ9) [facility] Start: 1980 History and physical examination, annual for health maintenance Wellness Visit [facility] Start: 1975 Tetanus vaccination Tetanus: Every 1 0yrs [facility] Kidney Stone Analysis Kidney Sto ne Analysis Lab STAT Release Upon Ordering for 1 Occurrences starting 03/25/2020 [facility] Comment on above: Release Upon Orderin g for 1 Occurrences starting 03/25/2020 Procedure on tissue specimen [facility] Comment on above: Release Upon Stephin g for 1 Occurrences starting 03/25/2020, 1 completed Payers Date Payer Category Payer Self-pay [id number] 2024 Unknown [id number] 1975 Unknown [id number] 1975 Unknown [id number] 1975 Unknown [id number] Unknown [id number] Unknown COMMERCIAL COMME RCIAL MISCELLANEOUS [id number] Effective for all dates [id number] Unknown Unknown [id number] Social History Date Type Detail Facility Start: 03-25-2020 End: 04-06-2020 Tobacco smoking status SCIS Never smoker [facility] Start: 03-25-2020 End: 04-06-2020 Tobacco use and exposure Never used [facility] Start: 03-25-2020 End: 04-06-2020 Alcohol intake Lifetime non-drinker (finding) [facility] Start: 03-24-2020 History SDOH Alcohol Frequency 1 [facility] Sex Assigned At Not on file [facility] Exposure to SARS-CoV -2 (event) Not sure [facility] Start: 04-08-2020 Tobacco smoking stat us SCIS Unknown if ever smoked [facility] Work Phone: Start: 04-08-2020 None [place] [facility] Work Phone: Start: 04-08-2020 [facility] Work Phone: Start: 1975 Sex Assigned At Male [facility] Work Phone: Medical Equipment Procedure Code Equipment Code Equipment Origin al Text Equipment Identifier Dates Cystoscopy with retrograde pyelography with ureteroscopy STENT,URO [id number] SFT [facility] Start: 04-08-2020 Stent 6fr X 28cm Ureter Percuflex - [id number] Start: 03-25-2020 Evaluation note Note Date & Type Note Facility Evaluation note No assessment information availa mari [facility] Work Phone: Discharge Instructions * Discharge Instr - AVS First Page* Becky Luna CNP - 03/25/2020 1:54 PM EST Follow up with Urologist in [place] for stent removal in one week 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 (that part was removed) * Discharge Instr - Other Orders* Audrey Ashraf RN - 03/25/2020 3:51 PM EST Please refer to your discharge instructions on your paperwork for medication administration uses. * Additional Instructions* Becky Luna CNP - 03/25/2020 Kidney Stone: Care Instructions Your Care Instructions Kidney stones are formed when salts, minerals, and other substances normally found in the urine clump together. They can be as small as grains of sand or, rarely, as large as golf balls. While the stone is traveling through the ureter, which is the tube that carries urine from the kidney to the bladder, you will probably feel pain. The pain may be mild or very severe. You may also have some blood in your urine. As soon as the stone reaches the bladder, any intense pain should go away. If a stone is too large to pass on its own, you may need a medical procedure to help you pass the stone. The doctor has checked you carefully, but problems can develop later. If you notice any problems ornew symptoms, get medical treatment right away. Follow-up care is a dunaway part of your treatment and safety. Be sure to make and go to all appointments, and call your doctor if you are having problems. It's also a good idea to know your test resultsand keep a list of the medicines you take. How can you care for yourself at home? Drink plenty of fluids, enough so that your urine is light yellow or clear like water. If you have kidney, heart, or liver disease and have to limit fluids, talk with your doctor before you increase the amount of fluids you drink. Take pain medicines exactly as directed. Call your doctor if you think you are having a problem with your medicine. ? If the doctor gave you a prescription medicine for pain, take it as prescribed. ? If you are not taking a prescription pain medicine, ask your doctor if you can take an adbg-jfd-eddioft medicine. Read and follow all instructions on the label. Your doctor may ask you to strain your urine so that you can collect your kidney stone when it passes. You can use a kitchen strainer or a tea strainer to catch the stone. Store it in a plastic bag until you see your doctor again. Preventing future kidney stones Some changes in your diet may help prevent kidney stones. Depending on the cause of your stones, your doctor may recommend that you: Drink plenty of fluids, enough so that your urine is light yellow or clear like water. If you have kidney, heart, or liver disease and have to limit fluids, talk with your doctor before you increase the amount of fluids you drink. Limit coffee, tea, and alcohol. Also avoid grapefruit juice. Do not take more than the recommended daily dose of vitamins C and D. Avoid antacids such as Gaviscon, Maalox, Mylanta, or Tums. Limit the amount of salt (sodium) in your diet. Eat a balanced diet that is not too high in protein. Limit foods that are high in a substance called oxalate, which can cause kidney stones. These foodsinclude dark green vegetables, rhubarb, chocolate, wheat bran, nuts, cranberries, and beans. When should you call for help? Call your doctor now or seek immediate medical care if: You cannot keep down fluids. Your pain gets worse. You have a fever or chills. You have new or worse pain in your back just below your rib cage (the flank area). You have new or more blood in your urine. Watch closely for changes in your health, and be sure to contact your doctor if: You do not get better as expected. Where can you learn more? Log into your personal health record on [email or web address] and enter X633 in the Education box to learn more about Kidney Stone: Care Instructions. Current as of: July 03, 2019 Content Version: 12.7 [employer]. Care instructions adapted under license by your healthcare professional. If you have questions about a medical condition or this instruction, always ask your healthcare professional. [employer] disclaims any warranty or liability for your use of this information. * Attachments The following attachments cannot be sent through Care Everywhere. * Ureteral Stent Placement: Post-op (Vietnamese) documented in this encounter History of Present Illness * Audrey Ashraf RN - 03/25/2020 3:51 PM EST Reviewed AVS with patient. Patient denied any questions or concerns. All belongings packed and senthome. Wheelchair provided; escorted patient to front entrance. Spouse to transport home. * Becky Luna, [place] - 03/25/2020 2:02 PM EST OBSERVATION DISCHARGE NOTE Assessment and Plan Brijesh Gonzalez is a 44 y.o. 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 Right renal calculus with obstruction Records from OSH showed a 1.1 cm right ureteral stone UA with hematuria Fluids and pain medication Urology consulted, S/P cystoscopy, ureteroscopy with retrograde stone manipulation and stent insertion with laser (03/25) Ok to discharge from a urology perspective, follow up with urologist in [place] in one week to for stent removal Acute pain Due to renal colic SL oxycodone Not requiring pain medication as pain controlled Physical Exam General: no acute distress CV: regular rate and rhythm; no murmur, rubs, gallops Resp: lungs clear to auscultation bilaterally Abdomen: soft, non-tender, non-distended, positive bowel sounds Neuro: no gross deficits Disposition The patient was appropriately risk stratified for observation level of care. I had a [id number] encounter with the patient on the day of discharge which included an appropriate physical exam. Discharge instructions and follow-up care were discussed in person with the patient. documented in this encounter* Minor Melton MD - 04/06/2020 12:33 PM EST [facility] - CYSTOSCOPY NOTE PROCEDURE DATE 04/06/2020 SURGEON Minor Melton MD, FACS PRE-OPERATIVE DIAGNOSIS Right urolithiasis POSTOPERATIVE DIAGNOSIS Right urolithiasis CLINICAL HISTORY The patient is a 44-year-old male with his first stone episode, transferred to [place] from the [facility] due to lack of hospital beds at the time of his presentation. He had a 1.1 cm stone treated with laser lithotripsy. He comes in today for stent removal. DESCRIPTION OF PROCEDURE After informed consent was obtained, the patient was taken to the procedure room and placed on table in supine position. He was then placed in dorsal lithotomy, prepped and draped, and lidocaine jelly was injected per urethra. Cystourethroscopy was performed using a 18 Nicaraguan flexible cystoscope with video assistance. This showed a normal anterior urethra. The prostatic urethra showed some mild hypertrophy, but was otherwise negative. Upon entering the bladder, the stent was seen protruding from the right ureteral orifice. It was grasped with a flexible rat-tooth grasping forceps and extracted. Inspection of the stent showed that it was entirely intact and without calcification. The patient tolerated procedure well, there were no immediate complications, and the cystoscope was removed without issue. FINDINGS Normal cystoscopic findings after stone surgery FOLLOW-UP/PLAN Problem List Items Addressed This Visit Genitourinary Kidney stone - Primary Patient tolerated stent removal in the office today without issue under local anesthesia. He will continue the tamsulosin as prescribed for the full month. I encouraged him to increase his fluids andflush out the remaining stone fragments, which should be all small enough to pass without issue. I recommended that he follow-up in 6 months with a KUB which can be done with a urologist closer to his home. Relevant Medications ciprofloxacin HCl (CIPRO) tablet 500 mg (Completed) (Start on 04/06/2020 1:15 PM) lidocaine HCL (UROJET) 2 % applicator 1 application (Completed) (Start on 04/06/2020 1:15 PM) Electronically signed by: Minor Melton MD 04/06/2020 12:33 PM * Yareli Mei RN - 04/06/2020 12:17 PM EST Review of Systems Constitution: Negative. HENT: Negative. Eyes: Negative. Cardiovascular: Negative. Respiratory: Negative. Endocrine: Negative. Hematologic/Lymphatic: Negative. Skin: Negative. Musculoskeletal: Negative. Gastrointestinal: Negative. Genitourinary: Positive for dysuria. Neurological: Negative. Psychiatric/Behavioral: Negative. Allergic/Immunologic: Negative. documented in this encounter Assessments Diagnosis Renal colic on right side- Primary Renal colic Acute pain Diagnosis Kidney stone- Primary Calculus of kidney Diagnosis Kidney stone- Primary Calculus of kidney Advance Directives No Advanced Directives Records FoundDocuments on File Type Date Recorded Patient Policy Change Clerk Expl anation Advance Directives and Livin g Will 03/24/2020 5:23 PM Latest Code Status on File Code Status Date Activated Date Inactivated Comments Full Code 03/24/2020 2:09 PM 03/25/2020 6:46 PM Documents on File Type Date Recorded Patient Policy Change Clerk Expl anation Advance Directives and Livin g Will 03/24/2020 5:23 PM Latest Code Status on File Code Status Date Activated Date Inactivated Comments Full Code 03/24/2020 2:09 PM 03/25/2020 6:46 PM Advance Directive Response Recorded Date/ Time Living Will No April 08 10:37pm Power of Real Estate Investor No April 08, 2020 10:37pm Procedure Findings Note Intraoperative fluoroscopic spot images as above. Please refer to the operative note for further details. Workstation ID: [id number] Summary Purpose Family History No Family History Records FoundNo Family History Records FoundNo Family History Records FoundNo Family History Records FoundNo Family History Records Found Additional Source Comments Reason for Visit (unrecogniz ed section and content) Status Reason Specialty Diagnoses / Procedures Referre d By Contact Referred To Contact Diagnoses Renal colic on right side obstructing kidney stone Reason Comments Follow-up stent removal Lainey Nair MD - 03/24/2020 11:45 AM EST H&P Notes (unrecognized sect ion and content) [facility] HISTORY AND PHYSICAL Patient Name: Brijesh Gonzalez : 1975 MR #: [id number] Admit Date: [id number] Physicians: No primary care provider on file. (Family); System, Provider Not In (Referring) Brijesh Gonzalez is a 44 y.o. male patient With no PCP and left kidney surgery to due childhood obstruction who presented with acute onset right flak pain and found to have obstructive ureteral stone Obstructive kidney stone Records from OSH showed a 1.2 cm right ureteral stone UA with hematuria Urology consulted NPO Fluids and pain medication CBC and RFP normal At OSH 1/ Acute pain Due to renal colic On dilaudid and sublingual oxycodone Admitted From: home Medication Reconciliation: Verified Code Status: Full Code Quality Measures DVT Prophylaxis: ambulate Wood Catheter: none Disposition Outpatient Testing: none Chief Complaint Right flank pain History of Present Illness This is a 44 yo man with history of left kidney obstruction and surgery, poss solitary kidney on the right who started to experience right flank pain last evening, it exacerbated overnight and presented to ED In early am. He was found to have hematuria and a CT abdomen showed a r ureteral obstructive stone, He was transferred to [facility] for urology consult. Past Medical History History reviewed. No pertinent past medical history. Past Surgical History History reviewed. No pertinent surgical history. Family History History reviewed. No pertinent family history. Social History Social History Tobacco Use Smoking Status Never Smoker Smokeless Tobacco Never Used Social History Substance and Sexual Activity Alcohol Use Never Frequency: Never Social History Substance and Sexual Activity Drug Use Never Allergy Information I have reviewed the patient's allergies. Patient has no known allergies. Home Medications Home medications were reviewed. Review Of Systems All systems have been reviewed and are negative except as noted in HPI or below Constitutional: Denies fever, chills, weight loss Eyes: Denies vision changes ENT: Denies hearing loss, nasal congestion, sore throat CV: Denies chest pain, palpitations, peripheral edema Respiratory: Denies shortness of breath, cough, wheezing : Denies dysuria, frequent urination MSK: Denies joint pain or swelling, restricted motion Integumentary: Denies skin changes, pruritis Neurological: Denies dizziness, headache, numbness or tingling Psychiatric: Denies depression, anxiety, sleep disturbance Endocrine: Denies heat or cold intolerance, excessive thirst Hematological: Denies abnormal bleeding or bruising Allergy/Immunological: Denies hives, swelling of lips or tongue Physical Examination BP 120/73 (BP Location: Right arm, Patient Position: Lying) Pulse 73 Temp 97.9 F (36.6 C) (Oral) Resp 16 Ht 5' 8 Wt 81.9 kg (180 lb 8.9 oz) SpO2 95% BMI 27.45 kg/m General Appearance: alert, well appearing, and in no acute distress HEENT: Head- normocephalic; Eyes- PERRLA, EOMI; Ears- external auditory canals clear, hearing intact; Nose- no nasal discharge; Throat- oropharynx normal Cardiovascular: regular rate and rhythm; normal S1, S2; no murmurs, rubs, clicks or gallops; no peripheral edema Respiratory: lungs clear to auscultation; without wheezes, rales or rhonchi Abdomen: soft, non-tender, non-distended; positive bowel sounds Neurological: alert, oriented x 3, normal speech; no focal findings or movement disorder noted Musculoskeletal: no significant deformity or tenderness to palpation Skin: normal coloration, texture and turgor; no lesions or eruptions Psych: normal mood and affect Laboratory and Additional Data Reviewed Laboratory 03/24/20 2:17 PM Medications 03/24/20 2:17 PM documented in this encounter Riley Estrada MD - 03/24/2020 1:31 PM EST Consult Notes (unrecognized section and content) Associated Order(s): IP CONSULT TO UROLOGY Assessment and Plan/Recommendations: Brijesh Gonzalez is a 44 y.o. y/o male presenting with right flank pain secondary to a 1.1 cm UPJ stone. We will add the patient for a cystoscopy, right retrograde, right ureteroscopy with HLL. The risks were discussed including bleeding, UTI, sepsis, ureteral injury, incomplete stone clearance. DVT/NH/PE and he desires to proceed. Please make NPO after midnight. A total of 40 minutes were spent on the patient's care. This time included chart review, laboratory and radiographic data review, note composition, and direct patient care. Patient Name: Brijesh Gonzalez : 1975 Physicians: No primary care provider on file. (Referring) Chief Complaint/Reason for Visit: Right flank pain History of Present Illness: Brijesh Gonzalez is a 44 y.o. male who presents today for evaluation of urolithiasis. The pateint's stones were found on imaging for flank pain. The duration of the patient's symptoms is 24-48 hours. The severity of symptoms is severe. The timing of the symptoms are intermittent. Pertinent data is summarized below: CT: Right 1.1 cm UPJ stone UA: Nit/LE negative Serum WBC: 6.1 Serum creatinine: 1.4 History: History reviewed. No pertinent past medical history. History reviewed. No pertinent surgical history. History reviewed. No pertinent family history. Social History Socioeconomic History Marital status: Not on file Spouse name: Not on file Number of children: Not on file Years of education: Not on file Highest education level: Not on file Occupational History Not on file Social Needs Financial resource strain: Not on file Food insecurity Worry: Not on file Inability: Not on file Transportation needs Medical: Not on file Non-medical: Not on file Tobacco Use Smoking status: Never Smoker Smokeless tobacco: Never Used Substance and Sexual Activity Alcohol use: Never Frequency: Never Drug use: Never Sexual activity: Not Currently Partners: Female Lifestyle Physical activity Days per week: Not on file Minutes per session: Not on file Stress: Not on file Relationships Social connections Talks on phone: Not on file Gets together: Not on file Attends evangelical service: Not on file Active member of club or organization: Not on file Attends meetings of clubs or organizations: Not on file Relationship status: Not on file Other Topics Concern Not on file Social History Narrative Not on file Allergy Information: I have reviewed the patient's allergies. Patient has no known allergies. Home Medications: Outpatient Medications as of 03/24/2020 Medication Sig multivitamin (THERAGRAN) per tablet Take 1 tablet by mouth daily . ROS Review of Systems: Gen: NO weight loss, no F/C Psych: No confusion Integumentary: No rashes or lesions Neuro: No motor deficits reported Pulm: NO dyspnea or SOB Cardiac: No anginal symptoms or chest pain GI: NO abdominal pain/distention. + N/V Endo: No heat/cold intolerated, no excessive thirst Heme: No easy bruising : + right flank pain Physical Examination: Vital Signs: BP 120/73 (BP Location: Right arm, Patient Position: Lying) Pulse 73 Temp 97.9 F (36.6 C) (Oral) Resp 16 Ht 5' 8 Wt 81.9 kg (180 lb 8.9 oz) SpO2 95% BMI 27.45 kg/m GENERAL: Well appearing. No acute distress. EYES: No changes in vision, no blurry vision EARS, NOSE, MOUTH, THROAT: mucous memebranes moist, trachea midline CARDIOVASCULAR/PULMONARY: unlabored breathing without shortness of breath. ABDOMEN: Soft, nondistended, nontender. BACK: No CVA tenderness. MUSCULOSKELETAL: Normal gate, normal extremity ROM with no edema LYMPH: No cervical or supraclavicular lymphadenopathy PSYCHATRIC: A & O x3, mood and affect appropriate Laboratory and Additional Data Reviewed: No results found for: PSASCRN No results found. documented in this encounter Brief Op Note - Minor Melton MD - 03/25/2020 1:27 PM ESTOp Note - Minor Melton MD - 03/25/2020 1:00 PM ESTPlan of Care - Flower Go RN - 03/25/2020 6:34 AM EST Miscellaneous Notes (unrecog nized section and content) Brief Post Operative Note Patient Name: Brijesh Gonzalez : 1975 (44 y.o.) Date of Service: 03/25/2020 CSN: [id number] Procedure(s): CYSTOSCOPY, RIGHT RETROGRADE PYELOGRAM, URETEROSCOPY, HOLMIUM LASER LITHOTRIPSY, STONE EXTRACTION, STENT PLACEMENT Pre-Operative Diagnoses: * Right renal calculus with obstruction [N20.0, N13.2] Post-Operative Diagnoses: * Right renal calculus with obstruction [N20.0, N13.2] Surgeon(s) and Role: * Minor Melton MD - Primary Anesthesiologist: Donato Gaston MD; Pop Stevens MD CARPET TECHNICIAN: Jenna Alberto CRNA Student Nurse Export Sales Manager: Shad Guan [employer] Process Equipment Operator: Onesimo Guevara RN; Mary Lou Fernandez RN Sign Manufacturer: Tomeka Burnette, TECHNOLOGIST Scrub Person: ST Rudy Anesthesia Specialist: Pop Denis Jr. Operative findings: 1.1 cm right renal pelvis stone with obstruction Intra and immediate post-operative complications: none Type of anesthesia used: General Estimated blood loss: 0 mL Estimated urine output: Specimen(s): ID Type Source Tests Collected by Time Destination A : right renal stone Calculus Ureter, Right KIDNEY STONE ANALYSIS, TISSUE EXAM Minor Melton MD 03/25/2020 1312 Implant(s): Implant Name Type Inv. Item Serial No. Local Driver Lot No. LRB No. Used Action STENT 6FR X 28CM URETER PERCUFLEX - [id number] Stent STENT 6FR X 28CM URETER PERCUFLEX [employer] U [id number] Right 1 Implanted Drain(s): * No LDAs found * Wound(s): Wound 03/25/20 Surgical Wound Perineum (Active) Minor Melton MD 03/25/2020 1:[address] [facility] UROLOGY - OPERATIVE NOTE PROCEDURE DATE 03/24/2020 - 03/25/2020 SURGEON Minor Melton MD, [facility] PREOPERATIVE DIAGNOSIS * No Diagnosis Codes entered * POSTOPERATIVE DIAGNOSIS * No Diagnosis Codes entered * OPERATION Procedure(s): CYSTOSCOPY, URETEROSCOPY WITH RETROGRADE STONE MANIPULATION STENT INSERTION WITH LASER ESTIMATED BLOOD LOSS 0 mL ANESTHESIA General SPECIMEN ID Type Source Tests Collected by Time Destination A : right renal stone Calculus Ureter, Right KIDNEY STONE ANALYSIS, TISSUE EXAM Minor Melton MD 03/25/2020 1312 DRAINS Implant Name Type Inv. Item Serial No. Local Driver Lot No. LRB No. Used Action STENT 6FR X 28CM URETER PERCUFLEX - [id number] Stent STENT 6FR X 28CM URETER PERCUFLEX [employer] U [id number] Right 1 Implanted COMPLICATIONS * No complications entered in OR log * INDICATION FOR PROCEDURE The patient is a 44-year-old male with his first documented stone measuring 1.1 cm in the right ureteropelvic junction with obstruction and renal colic. He was transferred here from the [facility] due to their local hospitals being on diversion. After discussion of the treatment options, he comes to the operating now for management of his stone. Discussion of the risks, complications, alternatives, and stone free rates of the various procedures has been performed by my partner with the patient. He would like to proceed with ureteroscopy and laser lithotripsy. DESCRIPTION OF PROCEDURE After the patient was properly identified and informed consent was obtained, he was taken to the operating room and placed on the table in the supine position. He was then given a general anesthetic and placed in dorsolithotomy. He was then prepped and draped sterilely. Cystourethroscopy was performed using a 22 Nicaraguan cystoscope with video assistance and the 30 degree lens. This showed a normal anterior urethra. Prostatic urethra was also normal. Upon entering the bladder systematic inspection showed no abnormalities. The right ureteral orifice was identified. It was then cannulated with an 8 Nicaraguan cone-tip catheter and a retrograde pyelogram was performed using a 50-50 mix of sterile water and Visipaque. This showed a large filling defect in the renal pelvis. The cone-tip catheter was then removed, and a 0.035 Nicaraguan Sensor Dual S guidewire was passed up the ureter and coiled in the renal pelvis. Given the size of the stone, I placed the longer ureteral access sheath, so that the 11 13 Nicaraguan by 46 cm access sheath was passed so that the end of the sheath set just below the ureteropelvic junction. Ureteroscopy was then performed using the [employer] LithoVue disposable digital ureteroscope. The stone was easily visualized, and was manipulated into an upper pole calyx. Using a 200 m Charlie laser fiber, holmium laser lithotripsy was performed using the standard dusting settings on the Obateches 2.0 120W laser. This resulted in excellent fragmentation of the stone, so that the majority of fragments were far below 1 mm in size. As this was the patient's first stone, I was able to get 1 of the larger fragments retrieved with a 1.9 Nicaraguan ZeroTip stone basket, so that we can send it for stone analysis. Given the amount of stone and the placement of the access sheath, I decided to go ahead and place a ureteral stent. Leaving the guidewire in position, the access sheath was removed and a 6 Nicaraguan by 28 cm [employer] Percuflex Plus right ureteral stent was placed. It was confirmed to be in good position by fluoroscopy so that the proximal coil was in the renal pelvis, and the distal coil in the bladder. The patient tolerated the procedure well, was awakened from anesthesia, and was transferred to the post anesthesia care unit in stable condition. Problem: Actual or potential alteration in health Goal: Absence of healthcare acquired conditions Outcome: Partially Met Goal: Knowledge of Interdisciplinary Plan of Care Outcome: Partially Met Goal: Knowledge of Enviroment Outcome: Partially Met Problem: Pain Goal: Manage acute pain Outcome: Partially Met Goal: Manage chronic pain Outcome: Partially Met Goal: Reduced pain sensation Outcome: Partially Met Goal: Achievement of comfort function goal Outcome: Partially Met Problem: Airway Clearance - Ineffective Goal: Patent airway Outcome: Partially Met Problem: Airway Clearance - Ineffective Goal: Patent airway Outcome: Partially Met Problem: Actual or potential alteration in health Goal: Absence of healthcare acquired conditions Outcome: Partially Met Goal: Knowledge of Interdisciplinary Plan of Care Outcome: Partially Met Goal: Knowledge of Enviroment Outcome: Partially Met Problem: Pain Goal: Manage acute pain Outcome: Partially Met Goal: Manage chronic pain Outcome: Partially Met Goal: Reduced pain sensation Outcome: Partially Met Goal: Achievement of comfort function goal Outcome: Partially Met documented in this encounter Associated Problem(s): Kidney stone Patient tolerated stent removal in the office today without issue under local anesthesia. He will continue the tamsulosin as prescribed for the full month. I encouraged him to increase his fluids and flush out the remaining stone fragments, which should be all small enough to pass without issue. I recommended that he follow-up in 6 months with a KUB which can be done with a urologist closer to his home. documented in this encounter (unrecognized sect ion and content) No Status Records FoundNo Status Records FoundNo Status Records FoundNo Status Records FoundNo Status Records Found INFORMATION SOURCE (unrecogn ized section and content) DATE CREATED AUTHOR 04/08/2020 [facility] DATE CREATED AUTHOR AUTHOR'S ORGANIZ ATION 04/12/2020 [facility] DATE CREATED AUTHOR AUTHOR'S ORGANIZ ATION 11/18/2024 [facility] DATE CREATED AUTHOR AUTHOR'S ORGANIZ ATION 11/22/2024 [facility] DATE CREATED AUTHOR AUTHOR'S ORGANIZ ATION 11/28/[address] [facility] Goals (unrecognized section and content) Goals may be documented in a n alternate section FOR RECORDS PERTAINING TO PATIENTS WHO ARE OR HAVE BEEN ENROLLED IN A CHEMICAL DEPENDENCY/SUBSTANCEABUSE PROGRAM, SOME INFORMATION MAY BE OMITTED. This clinical summary was aggregated from multiple sources. Caution should be exercised in using it in the provision of clinical care. This summary normalizes information from multiple sources, and as a consequence, information in this document may materially change the coding, format and clinical context of patient data. In addition, data may be omitted in some cases. CLINICAL DECISIONS SHOULD BE BASED ON THE PRIMARY CLINICAL RECORDS. [employer] [facility]. provides no warranty or guarantee of the accuracy or completeness of information in this document.
--- NOTE | 2024-11-29 06:59 | PCM.PRE.AN2 ---
ASA Classification* ASA Classification ASA Classification: 2 Assessment & Plan Anesthesia* Anesthesia Assessment Anesthesia Assessment: Discussed sedation and/or anesthesia options, risks, benefits, and alternatives with patient/parents/legal guardian/POA. Questions invited. The patient/parents/legal guardian/POA seems to understand and agrees to proceed with anesthesia plan. Reviewed the physical assessment, medical history, allergy history and patient home medications list prior to surgery/procedure/anesthetic and documented any changes. Performed airway and anesthesia risk assessments. Anesthesia Type Anesthesia Type: General Anesthesia Focused Assessment* Airway Assessment Mouth opens: >3 cm Mallampati Score: III Labs Anesthesia Preop lab: CBC WBC 7.1 K/mm3 (4.4-11.0) 04/09/20 06:38 04/09/20 RBC 4.65 M/mm3 (4.6-6.2) 04/09/20 06:38 04/09/20 Hgb 14.2 g/dL (13.0-16.5) 04/09/20 06:38 04/09/20 Hct 41.5 % (40-54) 04/09/20 06:38 04/09/20 Plt Count 170 K/mm3 (150-450) 04/09/20 06:38 04/09/20 CHEMISTRY Potassium 4.0 mmol/L (3.5-5.1) 04/14/20 09:34 04/14/20 Sodium 139 mmol/L (136-145) 04/14/20 09:34 04/14/20 BUN 19 mg/dL (7-18) H 04/14/20 09:34 04/14/20 Creatinine 1.06 mg/dL (0.70-1.30) 04/14/20 09:34 04/14/20 Glucose 92 mg/dL (74-106) 04/14/20 09:34 04/14/20 COAG Pre-Assessment Diagnosis/Proposed Procedure Planned Operative Procedure(s): CYSTO URETEROSCOPY LASER STENT RIGHT Anesthesia History Anesthesia History - goodyear stitcher: Anesthesia History - goodyear stitcher Hx Hospitalization No 11/28/24 08:53 Any Problems With Anesthesia No 11/28/24 08:53 Cholinesterase deficiency No 11/28/24 08:53 You/Your Family Experience No 11/28/24 08:53 fever (hyperthermia) with Relationship Recent Exposure to Contagious Disease Does patient have nerve No 11/28/24 08:53 stimulator Patient instructed to have device shut off --Does patient have Pacemaker or ICD? When Was Last Pacemaker Check QUESTION #4 FULL TEXT: You/Your Family Experience fever (hyperthermia) with Anesthesia Last Oral Intake Last Oral intake: Last Oral Intake NPO since Meds taken in AM with sips of water? Meds patient instructed to take am of surgery PONV PONV - goodyear stitcher: PONV - goodyear stitcher Female No 11/28/24 08:53 HX of Motion Sickness No 11/28/24 08:53 HX of N/V After Surgery No 11/28/24 08:53 Non-Smoker Yes 11/28/24 08:53 Duration of Surgery greater Yes 11/28/24 08:53 than 60 minutes Number of Risk Factors 2 11/28/24 08:53 PONV Score Moderate Risk 11/28/24 08:53 Respiratory Assessment Respiratory Assessment - goodyear stitcher: Respiratory Tract Infection Hx - goodyear stitcher Hx Respiratory Tract Infection No 11/28/24 08:53 STOP Sleep Apnea STOP Sleep Apnea - goodyear stitcher: STOP Sleep Apnea - goodyear stitcher Hx Hypertension No 11/28/24 08:53 Hx Sleep Apnea No 11/28/24 08:53 CPAP BIPAP Do you snore loudly (louder No 11/28/24 08:53 than talking or can be heard Do you often feel tired/ Yes 11/28/24 08:53 fatigued/ sleepy during daytime? Has anyone observed you stop No 11/28/24 08:53 breathing during sleep? STOP Results Negative 11/28/24 08:53 QUESTION #5 FULL TEXT : Do you snore loudly (louder than talking or can be heard through closed doors)? 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 Specify any problems Hx of Preganancy in last 3 N/A 11/28/24 08:53 Months Nurse Filling Out Transfusion DSCHRIBER 11/28/24 08:53 & Questions: Date: 11/28/24 11/28/24 08:53 Time: 08:54 11/28/24 08:53 Patient unable to answer at this time (ie. confused, unrespo /Reproduction History /Reproductive History - goodyear stitcher: /Reproductive Hx- goodyear stitcher Hx Now No 11/28/24 08:53 Gestational Age (in weeks): EDC: Hx Hx Para Hx Section SAB No 11/28/24 08:53 Active Medications Active Medications: Current Medications Generic Name Dose Route Start Last Admin Trade Name Freq PRN Reason Stop Dose Admin Cefazolin Sodium 2 gm/ Sodium 110 mls @ 200 mls/hr 11/29/24 08:50 Chloride IV 11/29/24 09:22 INTRAOP ONE Lactated Ringer's 1,000 mls @ 15 mls/hr 11/29/24 07:00 IV .Q48H GUERO PFSH Medical History (Updated 11/28/24 @ 08:59 by Amanda Ferreira) Wears glasses Restless legs Back pain Migraine headache Heartburn Non-smoker History of pain when walking Hx of renal impairment Home Medications ?Medication ?Instructions ?Recorded ?Last Taken ?Type NK 11/28/24 Unknown History Allergy/AdvReac Type Severity Reaction Status Date / Time No Known Allergies Allergy Verified 11/28/24 08:52 Surgical History (Updated 11/28/24 @ 08:59 by Amanda Ferreira) History of cystoscopy Hx of appendectomy Social History Smoking Status: Never smoker Review of Systems (Anesthesia) ROS Narrative System reviewed and no additional complaints, except as documented.
[2024-11-29] MEDS: Lactated Ringers 1,000 ML 15 ML IV (07:19)
--- NOTE | 2024-11-29 08:08 | DCINST_ITS ---
Discharge Instructions DC O2, CPAP, BIPAP needs Home O2 Discharge instructions: No Dressing / Incision Discharge Activity: Return to Normal Activity and May Not Drive (while taking narcotic pain medications.) Dressing / Incision Call your doctor if you observe: Fever of 101 or Higher Follow Up Care Please Follow Up With: Jesus Cartwright MD When: Call [phone] for an appointment Test Results: Test results from this visit will be discussed in further detail at your follow- up appointment, if applicable. Discharge Plan Admission Primary Reason for Your Visit: laser stone Attending Provider: Jesus Cartwright Primary Care Provider: Skyler Gonzalez Instructions Patient Instructions: Kidney Stone Ureteroscopy Print Language: Setswana Discharge Orders/Prescriptions Prescriptions: New ciprofloxacin HCl [Cipro] 500 mg tablet 500 mg PO BID Qty: 10 0RF tamsulosin [Flomax] 0.4 mg capsule 0.4 mg PO DAILY Qty: 10 0RF phenazopyridine [Pyridium] 100 mg tablet 100 mg PO TID Qty: 14 0RF oxycodone 5 mg tablet 5 mg PO Q6H PRN (Reason: pain) 7 Days Qty: 10 0RF Referrals / Follow Up: eJsus Cartwright MD [Med Staff - Active Staff] - Skyler Gonzalez MD [Primary Care Provider] - Disposition Disposition (needs filled in before D/C Order can be placed): Home, Self Care
--- NOTE | 2024-11-29 08:15 | PCM.OPRPT ---
Operative Report (Standard) Operative Information Date of Procedure: 11/29/24 Pre-Operative Diagnosis: Right kidney stone Post-Operative Diagnosis: same Surgery/Procedure Performed: Cystoscopy, right retrograde pyelogram, balloon dilation of the ureter, right ureteroscopy laser lithotripsy of stone, right stent placement food safety scientist: No Type of Anesthesia: General RN Documented Start/Stop Times: Operation Date: 11/29/24 08:50 Case Time Into Pre-Op 11/29/24 06:52 Procedure Start Time: 08:29 Procedure Stop Time: 08:44 Select all DRAINS/GRAFTS/IMPLANTS that apply: Drains Drain details: 6fr 26 cm stent right Estimated Blood Loss: minimal Specimen collected: No Description of surgery: This is a patient who presents to the hospital for treatment for an obstructing ureter calculi. I discussed with the patient how the surgery would be performed and we reviewed the risks and benefits of the surgery. The risk and benefits include the risk of failure to remove the stone completely and that the patient may need multiple procedures. We discussed the risk of an infection, the risk of bleeding. We discussed the very rare risk of serious complicated injury to the ureter. The patient understands that if the stone is not able to be removed safely that we may abort the procedure and place a stent. After full discussion and all questions address with the patient the consent form was signed the side was marked appropriately and the patient was taken back to the operating room for the procedure. The patient was taken back to the operating room. After induction of anesthesia by the anesthesiology team the patient was placed in dorsolithotomy position. The genitals were prepped and draped in usual sterile fashion. I went into the bladder with a 21 Lithuanian rigid cystourethroscope through the urethra. Upon entering the bladder I inspected the trigone the left and right ureteral orifice and the bladder itself. I then cannulated the right ureteral orifice and advanced a 0.038 Glidewire up into the kidney. Then over the Glidewire I advanced a 5 Fr Ureteral catheter and performed a retrograde pyelogram with about 10cc of contrast, to delineate the anatomy and identify the stone location. Then a ureteral balloon dilator was advanced over the wire and the distal ureter was balloon dilated with a 12 Fr x 5cm balloon dilator. After 3 minutes of dilating the ureter the balloon was backloaded off the 0.038 glidewire over the 0.038 guidewire I went in with the flexible 7.5fr ureteroscope. I was able to go inside with the 7.5Fr utereroscope and I pulled out the guidewire and then through the ureteroscope I engage the stone with laser lithotripsy using a 270miron laser fiber with energy setting of 6 Hertz and 0.6 J until the stone was lasered into tiny little pieces that should pass on their own. A retrograde pyelogram was performed with 10cc of contrast and no extravasation of contrast or perforation was identified in the ureter there was some mild irritation of the ureter where the stone was located. I then backed out of the ureter left the wire in place and then over the 0.038 guidewire I placed a double coiled pigtail ureteral stent. The ureteral stent was advanced over the 0.038 guidewire under direct fluoroscopic guidance and direct cystoscopic visual guidance, once the stent was in good position I pulled the wire and the stent coiled in the kidney and bladder in good position. I then drained the patient's bladder and the cystoscope was removed and the patient was taken back to the recovery room in good position. The patient was given discharge instructions to call the office for instructions on when to come to the office to have the stent removed. Surgical Findings: stone laser completely Complications Complications: No Admit VTE Documentation VTE Present on Admission: No VTE Mechan Device Prophylaxis: SCD's VTE Pharm Prophylaxis ordered?: No
[2024-11-29] MEDS: Cefazolin 1 GM/5 ML Vial 2 GM IV (08:19)
[2024-11-29] MEDS: Lidocaine 1% (5 ml sdv) 5 ML Vial IV (08:23)
[2024-11-29] MEDS: fentaNYL 100 MCG/2 ML Ampul IV (08:29)
--- NOTE | 2024-11-29 08:55 | PCM.POST.ANE ---
Anesthesia: Postop Eval I Current Vital Signs Temperature: 96.9 F Pulse Rate: 56 Blood Pressure: 111/78 Respiratory Rate: 14 Pulse Ox: 94 Assessment Airway patent: Yes Spontaneous unlabored respirations: Yes nausea: No Vomiting: No Anesthesia Complication: No Fluid Hydration Crystalloid volume administer (ml): 300 Total IV fluid infused: 300 Progress Note Anesthesia document: Postop Eval 1 completed: Yes
--- NOTE | 2024-11-29 09:18 | POSTOPAN2_ITS ---
Anesthesia Postop Eval I Sum Postop Eval Completion status Anesthesia document: Postop Eval 1 completed: Yes Anesthesia Postop Eval I Summary Anesthesia Postop Eval I Summary: Anesthesia Postop Eval I: Assessment Summary Airway patent Yes 11/29/24 08:56 ROLL GRINDER OPERATOR.CSIR Spontaneous unlabored Yes 11/29/24 08:56 ROLL GRINDER OPERATOR.CSIR respirations Mental status nausea No 11/29/24 08:56 ROLL GRINDER OPERATOR.CSIR Vomiting No 11/29/24 08:56 ROLL GRINDER OPERATOR.CSIR Anesthesia Postop Eval I: Fluid Summary Crystalloid volume administer 300 11/29/24 08:56 ROLL GRINDER OPERATOR.CSIR (ml) Colloids volume administered ( ml) Blood Product volume administered (ml) Total IV fluid infused 300 11/29/24 08:56 ROLL GRINDER OPERATOR.CSIR Anesthesia Postop Eval I: Summary Notes Anesthesia Complication No 11/29/24 08:56 ROLL GRINDER OPERATOR.CSIR Anesthesia Complication Comment: Post-operative progress note Anesthesia: Postop Eval II Evaluation Mental status: Awake Pain Level: 0 nausea: No Vomiting: No
--- NOTE | 2024-11-29 09:18 | PCM.POSTANE2 ---
Anesthesia Postop Eval I Sum Postop Eval Completion status Anesthesia document: Postop Eval 1 completed: Yes Anesthesia Postop Eval I Summary Anesthesia Postop Eval I Summary: Anesthesia Postop Eval I: Assessment Summary Airway patent Yes 11/29/24 08:56 VP [email or web address].CSIR Spontaneous unlabored Yes 11/29/24 08:56 VP GENETIC.CSIR respirations Mental status nausea No 11/29/24 08:56 VP GENETIC.CSIR Vomiting No 11/29/24 08:56 VP [email or web address].CSIR Anesthesia Postop Eval I: Fluid Summary Crystalloid volume administer 300 11/29/24 08:56 VP GENETIC.CSIR (ml) Colloids volume administered ( ml) Blood Product volume administered (ml) Total IV fluid infused 300 11/29/24 08:56 VP GENETIC.CSIR Anesthesia Postop Eval I: Summary Notes Anesthesia Complication No 11/29/24 08:56 VP GENETIC.CSIR Anesthesia Complication Comment: Post-operative progress note Anesthesia: Postop Eval II Evaluation Mental status: Awake Pain Level: 0 nausea: No Vomiting: No
--- NOTE | 2024-12-18 14:50 | PCM.HP.STD ---
HPI - General General Date of Admission: 11/29/24 HPI Narrative BRIJESH ODELL, is a 49 M who presents to laser a stone in the ureter. [facility] Medical History (Updated 11/28/24 @ 08:59 by Amanda Ferreira) Wears glasses Restless legs Back pain Migraine headache Heartburn Non-smoker History of pain when walking Hx of renal impairment Home Medications ?Medication ?Instructions ?Recorded ?Last Taken ?Type ciprofloxacin HCl 500 mg tablet 500 mg PO BID #10 tabs 11/29/24 Unknown Rx (Cipro) oxycodone 5 mg tablet 5 mg PO Q6H PRN pain 7 days #10 11/29/24 Unknown Rx tabs phenazopyridine 100 mg tablet 100 mg PO TID #14 tabs 11/29/24 Unknown Rx (Pyridium) tamsulosin 0.4 mg capsule (Flomax) 0.4 mg PO DAILY #10 caps 11/29/24 Unknown Rx Allergy/AdvReac Type Severity Reaction Status Date / Time No Known Allergies Allergy Verified 11/29/24 07:08 Surgical History (Updated 11/28/24 @ 08:59 by Amanda Ferreira) History of cystoscopy Hx of appendectomy Social History Smoking Status: Never smoker Vital Signs Vital Signs Vital Signs: Weight Weight: 84.277 kg Body Mass Index (BMI) 27.4
== END 2024-11-29 10:53 | disposition home or self-care (01) ==
LOC: SDC 06:48 → AC 06:50
PROVIDERS: PCP Family Medicine; Referring Provider Urology; Visit Provider Urology
PROC: 0TJ98ZZ Inspection of Ureter, Via Natural or Artificial Opening Endoscopic (ICD-10-PCS; CPT 52352; principal; 2024-11-29 08:40)
DX: N20.2 Calculus of kidney with calculus of ureter (principal); Z79.899 Other long term (current) drug therapy
CPT/HCPCS: 52356; 00873; 76000; C1769; C2617; J2405